=== PATIENT | male | born 1955 | race American Indian/Alaskan Native ===

== ENCOUNTER 2016-07-25 05:46 | Emergency (ER) | payer BC ==
[2016-07-25] MEDS ORDERED: XYLOCAINE 1% 20 mL ONE (06:15)
[2016-07-25] MEDS ORDERED: BOOSTRIX IM ONE (06:18)
--- NOTE | 2016-07-25 07:05 | Emergency Department Report ---
HPI - General Chief Complaint: Wound/Laceration Time Seen by Provider: 07/25/16 06:18 - HPI HPI: Chief complaint: Lacerated finger HPI: Patient is a 60-year-old male who cut his left index finger with scissors trying to cut plastic to separate his new shoes Mode of arrival: [private car] Source: [Patient] Began: One hour prior to admission Duration: Continuous Context: Patient has a history of diabetes and hypertension Quality: Sharp Severity: 7 out of 10 Improved with: Pressure improves bleeding Worsened with: Nothing Associated signs and symptoms: Bleeding no numbness or decreased movement ED Past Medical Hx - Past Medical History Previous Medical History?: Yes Hx Hypertension: Yes Hx Diabetes: Yes Additional medical history: GI bleed - Surgical History Past Surgical History?: Yes Additional Surgical History: surgery for GI bleed - Social History Smoking Status: Never Smoker Substance Use Type: None - Medications Home Medications: Home Medications Medication Instructions Recorded Confirmed Last Taken Type Diltiazem HCl 120 mg PO DAILY 09/23/14 12/02/15 09/21/14 History Fenofibrate 160 mg PO DAILY 09/23/14 12/02/15 09/21/14 History Glimepiride 2 mg PO DAILY 09/23/14 12/02/15 09/21/14 History Lisinopril/Hydrochlorothiazide 20 tab PO DAILY 09/23/14 12/02/15 09/21/14 History Simvastatin 10 mg PO QHS 09/23/14 12/02/15 09/21/14 History Percocet 7.5-325 mg 1 tab-cap PO TID #60 09/24/14 12/02/15 Unknown Rx ED Review of Systems ROS: Stated complaint: LAC 1ST FINGER LF HAND Other details as noted in HPI ROS Constitutional: No fever ENT: No uri symptoms Cardiovascular: No chest pain Respiratory: No sob or cough GI: No nausea vomiting Skin: Laceration Neuro: No focal weakness or numbness Agus/lymph: No edema Physical Exam - Physical Exam Vital Signs: Vital Signs 07/25/16 07/25/16 05:57 06:42 Temperature 98.1 F Pulse Rate 96 H Respiratory 18 16 Rate Blood Pressure 128/86 O2 Sat by Pulse 97 99 Oximetry Physical Exam: GENERAL: The patient is well-developed well-nourished []. [] HEENT: Normocephalic. Atraumatic. Extraocular motions are intact. Patient has moist mucous membranes. NECK: Normal inspection CHEST/LUNGS: There is no respiratory distress noted. HEART/CARDIOVASCULAR: capillary refill within normal limits ABDOMEN: There is no abdominal distention. SKIN: There is no rash. There is no edema. There is no diaphoresis. NEURO: The patient is awake, alert, and oriented. The patient is cooperative. The patient has normal speech. MUSCULOSKELETAL: 1-1/2 cm laceration at the DIP joint, ulnar aspect with brisk bleeding. Neurovascular intact. ED Course Vital Signs 07/25/16 07/25/16 05:57 06:42 Temperature 98.1 F Pulse Rate 96 H Respiratory 18 16 Rate Blood Pressure 128/86 O2 Sat by Pulse 97 99 Oximetry - Laceration /Wound Repair Left Finger Wound Location: upper extremity Wound Length (cm): 2 Wound's Depth, Shape: flap Wound Explored: clean Irrigated w/ Saline (ccs): 100 Betadine Prep?: No (Priscilla) Anesthesia: 1% Lidocaine Volume Anesthetic (ccs): 3 Wound Debrided: minimal Wound Repaired With: sutures Suture Size/Type: 4:0, proline Number of Sutures: 4 Layer Closure?: No Sterile Dressing Applied?: Yes Critical care attestation.: If time is entered above; I have spent that time in minutes in the direct care of this critically ill patient, excluding procedure time. ED Disposition Clinical Impression: Finger laceration Qualifiers: Encounter type: initial encounter Qualified Code(s): S61.219A - Laceration without foreign body of unspecified finger without damage to nail, initial encounter Disposition: DISCHARGED TO HOME OR SELFCARE Is pt being admited?: No Does the pt Need Aspirin: No Condition: Stable Instructions: Suture Care (ED) Additional Instructions: Suture removal 7 days. Return to the emergency department or follow-up with your primary care doctor for suture removal. Referrals: DONOVAN GE MD [Primary Care Provider] - 7-10 days Time of Disposition: 07:01
[2016-07-25 07:13] VITALS: BP 126/78
== END 2016-07-25 07:13 | disposition home or self-care (01) ==
LOC: ED 05:46
DX: S61.211A Laceration without foreign body of left index finger without damage to nail, initial encounter (principal); I10 Essential (primary) hypertension; E11.9 Type 2 diabetes mellitus without complications; W45.8XXA Other foreign body or object entering through skin, initial encounter; Y93.9 Activity, unspecified; Y92.9 Unspecified place or not applicable; Y99.9 Unspecified external cause status
CPT/HCPCS: 90471; 90715; 99282

== ENCOUNTER 2020-10-08 10:37 | Emergency (ER) | payer BC ==
[2020-10-08 11:12] VITALS: BP 139/90
--- NOTE | 2020-10-08 11:42 | Emergency Department Report ---
ED Neck Pain/Injury HPI - General Chief Complaint: Extremity Injury, Upper Stated Complaint: NECK/LT ARM PAIN Time Seen by Provider: 10/08/20 11:40 Mode of arrival: Ambulatory Limitations: No Limitations - History of Present Illness Initial Comments: This is a 65-year-old male nontoxic, well nourished in appearance, no acute signs of distress presents to the ED with c/o of acute on chronic right sided upper neck pain with radiation to right shoulder/arm x several years. Patient stated that he sees PCP and been taking Percocet with significant relief for many years. Patient stated that the past 2 days he was moving and developed this pain. Patient denies any trauma. Denies any bladder or bowel instability. Patient denies any urinary symptoms. Denies any fever, chills, nausea, vomiting, headache, stiff neck, chest pain or shortness of breath. Patient denies any numbness or tingling. Denies any allergies. Denies significant past medical history. MD Complaint: neck pain -: year(s) Place: home Radiation: right shoulder, right upper extremity Severity: mild Severity scale (0 -10): 3 Quality: aching Consistency: intermittent Improves With: rest supine Worsens With: movement of extremity, movement of neck Associated Symptoms: none. denies: headache, fever, numbness, tingling, weakness, vertigo, difficulty walking, swollen glands, difficulty swallowing, nausea, vomiting Treatments Prior to Arrival: none - Related Data Home Medications Medication Instructions Recorded Confirmed Last Taken Diltiazem HCl 120 mg PO DAILY 09/23/14 12/02/15 09/21/14 Fenofibrate 160 mg PO DAILY 09/23/14 12/02/15 09/21/14 Glimepiride 2 mg PO DAILY 09/23/14 12/02/15 09/21/14 Lisinopril/Hydrochlorothiazide 20 tab PO DAILY 09/23/14 12/02/15 09/21/14 Simvastatin 10 mg PO QHS 09/23/14 12/02/15 09/21/14 Previous Rx's Medication Instructions Recorded Last Taken Type Percocet 7.5-325 mg 1 tab-cap PO TID #60 09/24/14 Unknown Rx Cyclobenzaprine [Flexeril] 10 mg PO QHS PRN #10 tablet 10/08/20 Unknown Rx Naproxen 500 mg PO Q12HR PRN #12 tablet 10/08/20 Unknown Rx Allergies Allergy/AdvReac Type Severity Reaction Status Date / Time No Known Allergies Allergy Verified 10/08/20 11:09 ED Review of Systems ROS: Stated complaint: NECK/LT ARM PAIN Other details as noted in HPI Comment: All other systems reviewed and negative Constitutional: denies: chills, fever Eyes: denies: eye pain, eye discharge, vision change ENT: denies: ear pain, throat pain Respiratory: denies: cough, shortness of breath, wheezing Cardiovascular: denies: chest pain, palpitations Endocrine: no symptoms reported Gastrointestinal: denies: abdominal pain, nausea, diarrhea Genitourinary: denies: urgency, dysuria Musculoskeletal: denies: back pain, joint swelling, arthralgia Skin: denies: rash, lesions Neurological: denies: headache, weakness, paresthesias Psychiatric: denies: anxiety, depression Hematological/Lymphatic: denies: easy bleeding, easy bruising ED Past Medical Hx - Past Medical History Hx Hypertension: Yes Hx Diabetes: Yes Hx Liver Disease: No Hx Renal Disease: No Hx Sickle Cell Disease: No Hx Seizures: No Hx COPD: No Additional medical history: GI bleed - Surgical History Additional Surgical History: gi surgery - Social History Smoking Status: Never Smoker Substance Use Type: None - Medications Home Medications: Home Medications Medication Instructions Recorded Confirmed Last Taken Type Diltiazem HCl 120 mg PO DAILY 09/23/14 12/02/15 09/21/14 History Fenofibrate 160 mg PO DAILY 09/23/14 12/02/15 09/21/14 History Glimepiride 2 mg PO DAILY 09/23/14 12/02/15 09/21/14 History Lisinopril/Hydrochlorothiazide 20 tab PO DAILY 09/23/14 12/02/15 09/21/14 History Simvastatin 10 mg PO QHS 09/23/14 12/02/15 09/21/14 History Percocet 7.5-325 mg 1 tab-cap PO TID #60 09/24/14 12/02/15 Unknown Rx Cyclobenzaprine [Flexeril] 10 mg PO QHS PRN #10 tablet 10/08/20 Unknown Rx Naproxen 500 mg PO Q12HR PRN #12 tablet 10/08/20 Unknown Rx ED Physical Exam - General Limitations: No Limitations General appearance: alert, in no apparent distress - Head Head exam: Present: atraumatic, normocephalic - Eye Eye exam: Present: normal appearance, PERRL, EOMI - ENT ENT exam: Present: normal exam, normal orophraynx - Neck Neck exam: Present: normal inspection, full ROM. Absent: tenderness, meningismus, lymphadenopathy - Respiratory Respiratory exam: Absent: respiratory distress - Cardiovascular Cardiovascular Exam: Present: regular rate - Extremities Exam Extremities exam: Present: normal inspection, full ROM, normal capillary refill. Absent: tenderness, joint swelling - Back Exam Back exam: Present: normal inspection, full ROM, paraspinal tenderness (right cervical paraspinal). Absent: tenderness, CVA tenderness (R), CVA tenderness (L), muscle spasm, vertebral tenderness, rash noted - Neurological Exam Neurological exam: Present: alert, oriented X3, normal gait - Expanded Neurological Exam Expanded Patient oriented to: Present: person, place, time Cranial nerves: EOM's Intact: Normal, Facial Sensation: Normal Cerebellar function: Finger to Nose: Normal Upper motor neuron: Pronator Drift: Normal, Sensory Extinction: Normal Motor strength exam: RUE: 5, LUE: 5, RLE: 5, LLE: 5 Best Eye Response ([place]): (4) open spontaneously Best Motor Response (Brianna): (6) obeys commands Best Verbal Response (Brianna): (5) oriented [place] Total: 15 - Psychiatric Psychiatric exam: Present: normal affect, normal mood - Skin Skin exam: Present: warm, dry, intact, normal color. Absent: rash ED Course Vital Signs 10/08/20 11:11 Temperature 98.3 F Pulse Rate 92 H Respiratory 20 Rate Blood Pressure 139/90 O2 Sat by Pulse 97 Oximetry - Reevaluation(s) Reevaluation #1: 10/08/20 11:45 Patient is speaking in full sentences with no signs of distress noted. ED Medical Decision Making - Medical Decision Making This is a 65-year-old male that presents with cervical muscular paraspinal strain. Patient is stable was examined by me. There is no spinal tenderness. There is no cauda equina syndrome during examination. No bladder or bowel instability. Patient is discharged with muscle relaxant and Motrin. Patient was instructed not to operate any machinery while taking muscle relaxant as they cause her drowsiness. Patient was referred to Follow-up with a primary care doctor in 3-5 days or if symptoms worsen and continue return to emergency room as soon as possible. At time of discharge, the patient does not seem toxic or ill in appearance. No acute signs of distress noted. Patient agrees to discharge treatment plan of care. No further questions noted by the patient. This chart is dictated with using [employer] Dictation Program Critical care attestation.: If time is entered above; I have spent that time in minutes in the direct care of this critically ill patient, excluding procedure time. ED Disposition Clinical Impression: Cervical muscle strain Qualifiers: Encounter type: initial encounter Qualified Code(s): S16.1XXA - Strain of muscle, fascia and tendon at neck level, initial encounter Disposition: TO HOME OR SELFCARE Is pt being admited?: No Does the pt Need Aspirin: No Condition: Stable Instructions: RICE Therapy for Routine Care of Injuries, [id number], Cyclobenzaprine tablets Additional Instructions: Follow-up with your primary care doctor in 3-5 days or if symptoms worsen such as bladder or bowel stability, chest pain, short of breath, numbness or tingling sensation in extremities, headache, dizziness, visual changes, nausea vomiting, or abdominal pain, return back to emergency room as was possible. Take naproxen and Flexeril as prescribed. Do not operate heavy machinery while taking Flexeril due to sedation Prescriptions: Cyclobenzaprine [Flexeril] 10 mg PO QHS PRN #10 tablet PRN Reason: Muscle Spasm Naproxen 500 mg PO Q12HR PRN #12 tablet PRN Reason: Pain , Severe (7-10) Referrals: PRIMARY MD LUMA [Referring] - 3-5 Days AGUSTÍN FABIAN MD [Staff Physician] - 3-5 Days Time of Disposition: 11:47
== END 2020-10-08 12:18 | disposition home or self-care (01) ==
LOC: ED 10:37
DX: S16.1XXA Strain of muscle, fascia and tendon at neck level, initial encounter (principal); I10 Essential (primary) hypertension; E11.9 Type 2 diabetes mellitus without complications; Z98.890 Other specified postprocedural states; Z79.899 Other long term (current) drug therapy; X58.XXXA Exposure to other specified factors, initial encounter; Y93.89 Activity, other specified; Y92.89 Other specified places as the place of occurrence of the external cause; Y99.8 Other external cause status
CPT/HCPCS: 99281

== ENCOUNTER 2020-10-22 10:13 | Outpatient (CLI) | payer BC ==
[2020-10-22 11:01] LABS: Blood Urea Nitrogen 15 mg/dL (9-20)
--- NOTE | 2020-10-22 12:47 | Cat Scan Report ---
CT HEAD WITHOUT AND WITH INTRAVENOUS CONTRAST INDICATION / CLINICAL INFORMATION: Cerebrovascular accident. TECHNIQUE: All CT scans at this location are performed using CT dose reduction for ALARA by means of automated e xposure control. COMPARISON: None available. FINDINGS: HEMORRHAGE: No evidence of intracranial hemorrhage or extra-axial fluid collection. EXTRA-AXIAL SPACES: Cortical sulci and sylvian fissures are at the upper limit of normal given the pa mary's age of 65 years. Basilar cisterns have an unremarkable appearance. VENTRICULAR SYSTEM: The third and lateral ventricles are within normal limits in size and configurati on. CEREBRAL PARENCHYMA: Extensive periventricular and deep white matter lucency is observed. This is pro bably secondary to advanced microvascular ischemic change. There is no indication of recent infarctio n. No areas of encephalomalacia are identified. MIDLINE SHIFT OR HERNIATION: There is no mass effect. CEREBELLUM / BRAINSTEM: Brainstem has an unremarkable appearance. Age related cerebellar atrophy is n oted. MIDLINE STRUCTURES:Pituitary gland has an unremarkable appearance. No abnormalities are seen in the p ineal region. INTRACRANIAL VESSELS:Calcified atherosclerotic plaque is present along the course of the cavernous se gments of both internal carotid arteries. Similar findings are seen at the distal vertebral arteries. ORBITS: visualized portions of the orbits have an unremarkable appearance. SOFT TISSUES of HEAD: No significant abnormality. CALVARIUM: Evaluation of bone windows reveals no abnormalities. PARANASAL SINUSES / MASTOID AIR CELLS: Paranasal sinuses are free from inflammatory mucosal disease. Mastoid air cells are normally pneumatized. IMPRESSION: 1. Advanced microvascular ischemic change in the white matter both cerebral hemispheres. 2. Otherwise negative head CT without and with intravenous contrast. Signer Name: Rick Monzon MD Signed: 10/22/2020 12:43 PM Workstation Name: [id number]
== END 2020-10-22 10:14 | disposition home or self-care (01) ==
LOC: CT 10:13
PROVIDERS: ATTEND Internal Medicine
DX: I67.82 Cerebral ischemia (principal)
CPT/HCPCS: 36415; 70470; 82565; 84520; Q9967

== ENCOUNTER 2020-10-28 13:53 | Emergency (ER) | payer BC ==
[2020-10-28 14:02] VITALS: BP 111/69
--- NOTE | 2020-10-28 15:53 | Event Note ---
ED Screening Note Date of service: 10/28/20 Time: 15:50 ED Screening Note: 65-year-old -[place] male with a history of diabetes hypertension hyperlipidemia that states he is on blood thinners presents to the emergency room for right arm right leg numbness and headache x6 days. Patient states his primary care doctor is Dr. Gama and he spoke with him and he ordered a CAT scan on 10/22/2020 which was complete. Patient states that he has not been seen to discuss his CT scan as Dr. Gama had an emergency and had to leave the office. Patient reports that his right foot will sometimes get cold thinks is his circulation. Patient is unaware of his medications. This initial assessment/diagnostic orders/clinical plan/treatment(s) is/are subject to change based on patients health status, clinical progression and re- assessment by fellow clinical providers in the ED. Further treatment and workup at subsequent clinical providers discretion. Patient/guardian urged not to elope from the ED as their condition may be serious if not clinically assessed and managed. Initial orders include:
[2020-10-28 16:11] LABS: Basophils % (Auto) 0.7 % (0.0-1.8); Eosinophils # (Auto) 0.1 K/mm3 (0.0-0.4); Eosinophils % (Auto) 2.5 % (0.0-4.3); Hematocrit 46.3 % (35.5-45.6); Hemoglobin 15.5 gm/dl (11.8-15.2); Lymphocytes # (Auto) 2.6 K/mm3 (1.2-5.4); Lymphocytes % (Auto) 48.2 % (13.4-35.0); Mean Corpuscular HGB Conc 34 % (32-34); Mean Corpuscular Volume 85 fl (84-94); Monocytes # (Auto) 0.4 K/mm3 (0.0-0.8); Monocytes % (Auto) 8.1 % (0.0-7.3); Platelet Count 302 K/mm3 (140-440); Red Blood Count 5.44 M/mm3 (3.65-5.03); Red Cell Distribution Width 13.8 % (13.2-15.2)
[2020-10-28 16:33] LABS: Alanine Aminotransferase 16 units/L (7-56); Albumin 4.3 g/dL (3.9-5); BUN/Creatinine Ratio 17; Blood Urea Nitrogen 15 mg/dL (9-20); Hemolysis Index 32
--- NOTE | 2020-10-28 23:44 | Emergency Department Report ---
ED General Adult HPI - General Chief complaint: Extremity Injury, Upper Stated complaint: R ARM PAIN Time Seen by Provider: 10/28/20 23:26 Source: patient Mode of arrival: Ambulatory Limitations: No Limitations - History of Present Illness Initial comments: 65-year-old male patient with history of atherosclerotic disease presents to the emergency department with complaints of nontraumatic right upper extremity and right lower extremity pain for several years. Patient states he tried to contact his primary care provider, who reportedly had to leave town on emergency, and he was advised to come to the emergency department. Pain is no worse today than it has been in the past. Patient states he is not currently on any pain medication. There has been no recent fall or injury. Denies headache, chest pain, shortness of breath, paresthesias, numbness, back pain, skin color changes. Denies all other complaints at this time. - Related Data Home Medications Medication Instructions Recorded Confirmed Last Taken Diltiazem HCl 120 mg PO DAILY 09/23/14 12/02/15 09/21/14 Fenofibrate 160 mg PO DAILY 09/23/14 12/02/15 09/21/14 Glimepiride 2 mg PO DAILY 09/23/14 12/02/15 09/21/14 Lisinopril/Hydrochlorothiazide 20 tab PO DAILY 09/23/14 12/02/15 09/21/14 Simvastatin 10 mg PO QHS 09/23/14 12/02/15 09/21/14 Previous Rx's Medication Instructions Recorded Last Taken Type Percocet 7.5-325 mg 1 tab-cap PO TID #60 09/24/14 Unknown Rx Cyclobenzaprine [Flexeril] 10 mg PO QHS PRN #10 tablet 10/08/20 Unknown Rx Naproxen 500 mg PO Q12HR PRN #12 tablet 10/08/20 Unknown Rx Acetaminophen [Acetaminophen TAB] 1,000 mg PO Q4HR #30 tablet 10/28/20 Unknown Rx Lidocaine [Lidoderm] 1 each TP BID #20 adh..patch 10/28/20 Unknown Rx Allergies Allergy/AdvReac Type Severity Reaction Status Date / Time No Known Allergies Allergy Verified 10/08/20 11:09 ED Review of Systems ROS: Stated complaint: R ARM PAIN Other details as noted in HPI Other: GENERAL: Negative for fever, chills, weight change, anorexia, fatigue. ENT: Negative for ear pain, difficulty hearing, sore throat, nasal congestion, epistaxis. CARDIOVASCULAR: Negative for chest pain, palpitations, lower extremity swelling. PULMONARY: Negative for cough, dyspnea, wheezing, orthopnea, cyanosis. GASTROINTESTINAL: Negative for abdominal pain, nausea, vomiting, diarrhea, constipation. MUSCULOSKELETAL: Positive for joint pain. NEUROLOGICAL: Negative for headache, seizure, syncope, paresthesias, weakness. INTEGUMENTARY: Negative for erythema, rash, diaphoresis, laceration, ecchymosis. HEMATOLOGICAL: Negative for hemoptysis, hematemesis, hematochezia, hematuria. PSYCHIATRIC: Negative for hallucinations, suicidal ideation, homicidal ideation, anxiety, depression. ED Past Medical Hx - Past Medical History Previous Medical History?: Yes Hx Hypertension: Yes Hx Diabetes: Yes Hx Liver Disease: No Hx Renal Disease: No Hx Sickle Cell Disease: No Hx Seizures: No Hx COPD: No Additional medical history: GI bleed - Surgical History Past Surgical History?: Yes Additional Surgical History: gi surgery - Social History Smoking Status: Never Smoker Substance Use Type: None - Medications Home Medications: Home Medications Medication Instructions Recorded Confirmed Last Taken Type Diltiazem HCl 120 mg PO DAILY 09/23/14 12/02/15 09/21/14 History Fenofibrate 160 mg PO DAILY 09/23/14 12/02/15 09/21/14 History Glimepiride 2 mg PO DAILY 09/23/14 12/02/15 09/21/14 History Lisinopril/Hydrochlorothiazide 20 tab PO DAILY 09/23/14 12/02/15 09/21/14 History Simvastatin 10 mg PO QHS 09/23/14 12/02/15 09/21/14 History Percocet 7.5-325 mg 1 tab-cap PO TID #60 09/24/14 12/02/15 Unknown Rx Cyclobenzaprine [Flexeril] 10 mg PO QHS PRN #10 tablet 10/08/20 Unknown Rx Naproxen 500 mg PO Q12HR PRN #12 tablet 10/08/20 Unknown Rx Acetaminophen [Acetaminophen TAB] 1,000 mg PO Q4HR #30 tablet 10/28/20 Unknown Rx Lidocaine [Lidoderm] 1 each TP BID #20 adh..patch 10/28/20 Unknown Rx ED Physical Exam - General Limitations: No Limitations - Other Other exam information: General: Awake and alert. No acute distress. Head: Atraumatic, normocephalic. Eyes: EOMI. Pupils are equal and round. Normal sclera and conjunctiva. ENT: Oral mucosa is moist. Normal pharyngeal exam. Neck: Supple. No lymphadenopathy. Pulmonary: No respiratory distress. Clear to auscultation bilaterally. Cardiac: Regular rate and rhythm. Pulses are palpable and equal bilaterally. No lower extremity cyanosis or edema. Skin: Warm and dry. No rashes. Abdomen: Soft, non-tender, non-protuberant. No guarding, rigidity, or rebound. Bowel sounds are normal. No organomegaly or masses noted. Back: Normal alignment. No CVA tenderness. Extremities: Symmetrical. Full range of motion intact. Patient reports poorly localized right upper and right lower extremity pain without reproducible tenderness. Ambulatory without assistance. Distal neurovascular motor/sensory function intact. Neurological: Alert and oriented, appropriately interactive, no focal deficits. Psych: Cooperative. Appropriate mood and affect. Speech is evenly metered. Thoughts are logically construed. ED Course Vital Signs 10/28/20 10/28/20 14:00 23:54 Temperature 97.5 F L Pulse Rate 88 81 Respiratory 18 17 Rate Blood Pressure 111/69 [Right] O2 Sat by Pulse 98 99 Oximetry ED Medical Decision Making - Lab Data Result diagrams: 10/28/20 15:57 10/28/20 15:57 - Medical Decision Making Differential diagnosis including but not limited to: sprain, strain, fracture, contusion, dislocation, peripheral vascular disease, electrolyte abnormality, cervical radiculopathy Patient presents emergency department with complaints of nontraumatic right upper and right lower extremity pain for several years. Review of past medical records indicates patient has been evaluated in this emergency department for the same complaint on previous occasions. He was also evaluated by his primary care provider last week, at which time he underwent CT scan of the head, which showed no acute changes. Patient attempted to contact his primary care provider to receive the results of his CT results, but was told that his doctor was out of town. He is here inquiring about the results of his outpatient imaging study. These results were retrieved and discussed with the patient. Pain is no different today and he has not taken any medication for pain. He is afebrile, hemodynamically stable, neurovascularly intact, ambulatory without assistance. Labs ordered during medical screening exam by previous provider unremarkable. No clinical indication for further diagnostic work-up on an emergent basis at this time. Patient will be discharged home with appropriate analgesics and instructed to call his primary care provider's office tomorrow to arrange for close outpatient follow-up for definitive management of his ongoing pain. Review of past medical records demonstrates patient has a remote history of GI bleed. He thinks he may be on an anticoagulant, but cannot recall the name of the medication and is not sure why he was started on this medication; he states he has no prior history of venous thromboembolism. As a precaution, NSAIDs/steroids will be avoided. Patient expressed understanding and is agreeable to plan of care. Strict return precautions provided. Repeat exam is unremarkable and benign. History, exam, diagnostic testing, and current condition do not suggest worrisome pathology to warrant further testing, continued ED treatment, admission, or surgical evaluation at this point. Given the low probability of a significant medical illness, it would be more likely to result in harm than benefit to perform further testing at this stage. Discussed findings, presumptive diagnosis, need for follow-up and specific signs/symptoms that should prompt immediate return to the emergency department. Instructions were explained in detail to the patient in addition to giving written discharge information. Patient expressed understanding and was given the opportunity to ask questions, all of which were satisfactorily answered prior to discharge home. Critical care attestation.: If time is entered above; I have spent that time in minutes in the direct care of this critically ill patient, excluding procedure time. ED Disposition Clinical Impression: Chronic pain Qualifiers: Chronic pain type: other chronic pain Qualified Code(s): G89.29 - Other chronic pain Disposition: DC-01 TO HOME OR SELFCARE Is pt being admited?: No Does the pt Need Aspirin: No Condition: Stable Instructions: Chronic Pain, Adult Additional Instructions: Take Acetaminophen every 4 hours as needed for pain. Use Lidoderm patches as needed for pain. Continue all other medications as previously prescribed. Follow-up with Dr. Mclain, primary care provider, this week. Call tomorrow to schedule an appointment. Return to the emergency department immediately for new or worsening symptoms. Specifically, return to the emergency department immediately for headache, seizu re, mental status changes, numbness, weakness, or any other concerns. Prescriptions: Acetaminophen [Acetaminophen TAB] 1,000 mg PO Q4HR #30 tablet Lidocaine [Lidoderm] 1 each TP BID #20 adh..patch Referrals: TABATHA MCLAIN MD [Staff Physician] - 3-5 Days Time of Disposition: 23:48
== END 2020-10-28 23:54 | disposition home or self-care (01) ==
LOC: ED 13:53
DX: M79.604 Pain in right leg (principal); M79.641 Pain in right hand; G89.29 Other chronic pain; I10 Essential (primary) hypertension; Z79.899 Other long term (current) drug therapy
CPT/HCPCS: 36415; 80053; 85025; 99283

== ENCOUNTER 2020-11-13 09:51 | Outpatient (CLI) | payer BC ==
--- NOTE | 2020-11-13 12:03 | Magnetic Resonance Report ---
MRI BRAIN WITHOUT AND WITH CONTRAST INDICATION / CLINICAL INFORMATION: Sensory disorder, headaches, right-sided weakness. TECHNIQUE: Multiplanar, multisequence MR images of the brain were obtained. COMPARISON: Head CT on 10/22/2020 FINDINGS: BRAIN / INTRACRANIAL CONTENTS: There are multiple tiny acute infarcts in the cerebral white matter in cluding the bilateral frontal almonte radiata and right parietal periventricular white matter. There i s no associated hemorrhage or adverse mass effect. There is similar advanced chronic small vessel isc hemic change in the cerebral white matter and moderate global brain atrophy. There is a small focus o f chronic microhemorrhage in the right frontal cerebral white matter and in the right thalamus. CRANIOCERVICAL JUNCTION: No significant abnormality. VASCULAR FLOW-VOIDS: No significant abnormality. ORBITS: No significant abnormality of visualized orbits. SINUSES / MASTOIDS: No significant abnormality of visualized sinuses and mastoid air cells. ADDITIONAL FINDINGS: None. IMPRESSION: 1. Multiple tiny acute lacunar infarcts in the cerebral white matter without acute hemorrhage or adve rse mass effect. 2. Advanced chronic small vessel ischemic change in the cerebral white matter. Signer Name: Jesus Vasques MD Signed: 11/13/2020 11:59 AM Workstation Name: [id number]
[2020-11-13 12:57] LABS: Hematocrit 23.8 % (35.5-45.6); Hemoglobin 8.1 gm/dl (11.8-15.2); Mean Corpuscular HGB Conc 34 % (32-34); Mean Corpuscular Volume 85 fl (84-94); Platelet Count 298 K/mm3 (140-440)
[2020-11-13 13:25] LABS: Alanine Aminotransferase 18 units/L (7-56); Albumin 4.1 g/dL (3.9-5); BUN/Creatinine Ratio 16; Blood Urea Nitrogen 14 mg/dL (9-20); Calcium 9.4 mg/dL (8.4-10.2); Hemolysis Index 3
== END 2020-11-13 09:52 | disposition home or self-care (01) ==
LOC: MRI 09:51
PROVIDERS: ATTEND Internal Medicine
DX: I63.9 Cerebral infarction, unspecified (principal); R20.8 Other disturbances of skin sensation; I67.82 Cerebral ischemia; G31.89 Other specified degenerative diseases of nervous system; I61.8 Other nontraumatic intracerebral hemorrhage
CPT/HCPCS: 36415; 70553; 80053; 85027; A9575

== ENCOUNTER 2021-03-03 09:07 | Outpatient (CLI) | payer BC ==
--- NOTE | 2021-03-03 13:43 | Magnetic Resonance Report ---
MR lumbar spine wo con INDICATION / CLINICAL INFORMATION: LUMBAR PAIN--RT LEG PAIN. TECHNIQUE: Multisequence, multiplanar images of the lumbar spine were obtained. COMPARISON: None available. FINDINGS: NOMENCLATURE: For the purposes of this report, L5-S1 is defined as axial image 37 of series 6. ALIGNMENT: Normal alignment. VERTEBRAE:No aggressive osseous marrow signal. Vertebral body heights are preserved. VISUALIZED SPINAL CORD: The conus appears within normal limits. YDRWM-IS-QITYA ANALYSIS: L1-2: No significant spinal canal stenosis. No significant foraminal narrowing. L2-3: No significant spinal canal stenosis. No significant foraminal narrowing. L3-4: No significant spinal canal stenosis. No significant foraminal narrowing. L4-5: Small disc bulge. Moderate facet arthropathy. Mild spinal canal stenosis. No significant spinal canal stenosis. Mild foraminal narrowing. L5-S1: Small disc bulge. Advanced arthropathy. Mild spinal canal stenosis. Mild foraminal narrowing. PARASPINAL SOFT TISSUES: No significant abnormality. ADDITIONAL FINDINGS: None. IMPRESSION: L4-5 and L5-S1 spondylosis with moderate facet arthropathy mild spinal canal stenosis, and mild priyank inal narrowing. Definitions used for the purposes of this report: Lumbar canal stenosis (Keshia et al. Br J Radiol. 2012;86(9645):[id number]): No stenosis: No attenuation of the CSF spaces Mild stenosis: Anterior CSF space mildly obliterated Moderate stenosis: Anterior CSF space is moderately obliterated; cauda equina partially aggregated Severe stenosis: Marked compression of the dural sac; cauda equina cannot be visually and a ppear as a bundle Lumbar lateral recess stenosis (Erick et al. World J Radiol. 2017 November 13;9(5):223-229): No stenosis: Nerve root is bathed in fluid Mild stenosis: Narrowing of the lateral recess without root deviation Moderate stenosis: Narrowing of the recess with nerve root deviation Severe stenosis: Compression of the nerve root Lumbar neural foraminal stenosis (Jigar et al. AJR Am J Roentgenol. 2010 Sep;194(4):1095-8): No stenosis: No attenuation of the fat in the foramen Mild stenosis: Loss of the fat in the foramen on two sides Moderate stenosis: Loss of the fat in the foramen all four sides Severe stenosis: Loss of the fat in the foramen all four sides and compression of the nerve root Signer Name: Sharath Douglas MD Signed: 03/03/2021 1:39 PM Workstation Name: [id number]
--- NOTE | 2021-03-03 13:53 | Magnetic Resonance Report ---
MRI CERVICAL SPINE WITHOUT CONTRAST INDICATION / CLINICAL INFORMATION: CERVICAL PAIN. TECHNIQUE: Multisequence, multiplanar images of the cervical spine were obtained. COMPARISON: None available. FINDINGS: CRANIOCERVICAL JUNCTION:No significant abnormality. Trace fluid accumulation in the left lateral atla ntoaxial joint ALIGNMENT: No significant abnormality. VERTEBRAE:Normal marrow signal and vertebral body height for age. VISUALIZED SPINAL CORD: No significant abnormality. IGMIY-UF-DCCIY ANALYSIS: C2-3: Midline disc bulge; neuroforamina are normal C3-4: Midline disc bulge; neuroforamina are normal C4-5: Midline disc protrusion extending more towards the left side; moderate left foraminal stenoses C5-6: Disc height loss; disc herniation in the right subarticular zone displacing the dural sac and s vaibhav cord; moderate right foraminal stenoses C6-7: Right foraminal disc herniation extending across the midline towards the left neural foramen; m oderate right foraminal stenoses C7-T1: Bulging disc; neuroforamina are normal PARASPINAL SOFT TISSUES: No significant abnormality. ADDITIONAL FINDINGS: Mucosal thickening in the sphenoid sinus; chronic changes in the rivas due to chr onic small vessel disease IMPRESSION: C5-C6: Disc herniation on the right subarticular zone; moderate right foraminal stenoses C6-C7: Right foraminal zone disc herniation extending across the midline towards the left neuroforame n; moderate right foraminal stenoses Signer Name: Sidra Miramontes MD Signed: 03/03/2021 1:48 PM Workstation Name: [id number]
== END 2021-03-03 09:08 | disposition home or self-care (01) ==
LOC: MRI 09:07
PROVIDERS: ATTEND Psychiatry & Neurology Neurology
DX: M47.817 Spondylosis without myelopathy or radiculopathy, lumbosacral region (principal); M50.221 Other cervical disc displacement at C4-C5 level; M48.07 Spinal stenosis, lumbosacral region; M51.27 Other intervertebral disc displacement, lumbosacral region; M48.02 Spinal stenosis, cervical region
CPT/HCPCS: 72141; 72148

== ENCOUNTER 2021-07-27 09:21 | Outpatient (CLI) | payer BC ==
--- NOTE | 2021-07-27 11:00 | XRay Report ---
Right shoulder 3 views INDICATION: Pain FINDINGS: There is glenohumeral and AC degenerative change. No acute fracture or dislocation is ident ified. Signer Name: Linus Bennett MD Signed: 07/27/2021 10:56 AM Workstation Name: [id number]
== END 2021-07-27 09:22 | disposition home or self-care (01) ==
LOC: XRAY 09:21
PROVIDERS: ATTEND Neurological Surgery
DX: M19.011 Primary osteoarthritis, right shoulder (principal)

== ENCOUNTER 2021-08-04 09:49 | Outpatient (CLI) | payer BC ==
--- NOTE | 2021-08-04 12:42 | Magnetic Resonance Report ---
MRI BRAIN WITHOUT CONTRAST INDICATION / CLINICAL INFORMATION: R51.9 HEADACHE,UNSPECIFIED, NECK PAIN, TINGLING RT HAND. TECHNIQUE: Multiplanar, multisequence MR images of the brain were obtained. COMPARISON: MRI brain 11/13/2020 and 07/11/2008 FINDINGS: BRAIN / INTRACRANIAL CONTENTS: Moderate parenchymal volume loss is demonstrated. Large of the cortica l sulci and ventricular system is noted. This is somewhat more pronounced than expected for patient's age of 65 years. Extensive periventricular, deep white matter and subcortical white matter hyperinte nsities are observed throughout both cerebral hemispheres. This is a manifestation of advanced microv ascular ischemic change. Findings are stable since 11/13/2020 but have progressed since study dated . Additionally noted are multiple remote small deep infarctions in a bilateral gangliocapsular distribution as well as in the white matter of the centrum semiovale of both cerebral hemispheres. R emote small deep lesions are identified in the posterior aspect of the thalami bilaterally. Similar f indings were present on previous study. Diffusion weighted scans are unremarkable for 2 small foci of restricted diffusion in the region of the postcentral gyrus on the left. Recent infarctions in this location are suspected. There is no mass effect. No evidence of intracranial hemorrhage or extra-axia l fluid collection is seen. The brainstem and cerebellum have an unremarkable appearance. CRANIOCERVICAL JUNCTION: No abnormalities are identified at the craniocervical junction. VASCULAR FLOW-VOIDS: Normal flow-voids are present within the major intracranial vessels. ORBITS: The orbits have an unremarkable appearance. SINUSES / MASTOIDS: Inflammatory changes are present in the frontal sinuses, anterior and mid ethmoid air cells and at the base of both maxillary sinuses. These inflammatory changes have progressed sinc e 11/13/2020. IMPRESSION: 1. 2 small foci of restricted diffusion are observed in the postcentral gyrus of the left parietal lo be near the vertex. These reflect presence of a recent small infarctions. 2. Advanced microvascular ischemic change. 3. Multifocal remote small deep infarctions. Signer Name: Rick Monzon MD Signed: 08/04/2021 12:37 PM Workstation Name: [id number]
== END 2021-08-04 09:50 | disposition home or self-care (01) ==
LOC: MRI 09:49
PROVIDERS: ATTEND Psychiatry & Neurology Neurology
DX: I67.82 Cerebral ischemia (principal); I63.9 Cerebral infarction, unspecified; R51.9 Headache, unspecified
CPT/HCPCS: 70551

== ENCOUNTER 2022-01-29 22:14 | Emergency (ER) | payer BC, MEDICARE ==
[2022-01-29] MEDS ORDERED: ACETAMINOPHEN 500 MG TAB PO ONE (23:00)
[2022-01-29 23:35] LABS: Basophils # (Auto) 0.1 K/mm3 (0.0-0.1); Eosinophils # (Auto) 0.2 K/mm3 (0.0-0.4); Eosinophils % (Auto) 2.7 % (0.0-4.3); Hematocrit 40.7 % (35.5-45.6); Hemoglobin 13.6 gm/dl (11.8-15.2); Lymphocytes # (Auto) 1.2 K/mm3 (1.2-5.4); Lymphocytes % (Auto) 22.1 % (13.4-35.0); Mean Corpuscular HGB Conc 34 % (32-34); Mean Corpuscular Volume 82 fl (84-94); Monocytes # (Auto) 0.4 K/mm3 (0.0-0.8); Monocytes % (Auto) 7.6 % (0.0-7.3); Platelet Count 239 K/mm3 (140-440); Red Blood Count 4.95 M/mm3 (3.65-5.03); Red Cell Distribution Width 14.3 % (13.2-15.2)
[2022-01-29] MEDS ORDERED: hydrALAZINE 20 MG/1 ML INJ IV ONE (23:41)
--- NOTE | 2022-01-29 23:43 | Emergency Department Report ---
ED Headache HPI - General Chief Complaint: Dizziness Stated Complaint: ALUC/HYPERTENSION Time Seen by Provider: 01/29/22 22:53 - History of Present Illness Initial Comments: Patient is a 66-year-old male presenting to ED with complaint of headache that began a little over an hour ago. He describes it as a throbbing sensation in the posterior right portion of his head, gradual in onset. He also complains of feeling lightheaded. Also complains of spasms in his right arm. He denies any chest pain or palpitations. He did not take anything for his symptoms. Allergies/Adverse Reactions: Allergies No Known Allergies Allergy (Verified 10/08/20 11:09) Home Medications: Ambulatory Orders Diltiazem HCl 120 mg PO DAILY 09/23/14 Fenofibrate 160 mg PO DAILY 09/23/14 Glimepiride 2 mg PO DAILY 09/23/14 Lisinopril/Hydrochlorothiazide 20 tab PO DAILY 09/23/14 Simvastatin 10 mg PO QHS 09/23/14 Percocet 7.5-325 mg 1 tab-cap PO TID #60 09/24/14 Cyclobenzaprine [Flexeril] 10 mg PO QHS PRN #10 tablet 10/08/20 Naproxen 500 mg PO Q12HR PRN #12 tablet 10/08/20 Acetaminophen [Acetaminophen TAB] 1,000 mg PO Q4HR #30 tablet 10/28/20 Lidocaine [Lidoderm] 1 each TP BID #20 adh..patch 10/28/20 ED Review of Systems ROS: Stated complaint: ALUC/HYPERTENSION Other details as noted in HPI Constitutional: denies: chills, fever Respiratory: denies: cough, shortness of breath, wheezing Cardiovascular: denies: chest pain, palpitations Gastrointestinal: denies: abdominal pain, nausea, diarrhea Genitourinary: denies: urgency, dysuria Musculoskeletal: denies: back pain, joint swelling, arthralgia Skin: denies: rash, lesions Neurological: headache Psychiatric: denies: anxiety, depression ED Past Medical Hx - Past Medical History Previous Medical History?: Yes Hx Hypertension: Yes Hx CVA: Yes Hx Diabetes: Yes Hx Liver Disease: No Hx Renal Disease: No Hx Sickle Cell Disease: No Hx Seizures: No Hx COPD: No Additional medical history: GI bleed - Surgical History Past Surgical History?: Yes Additional Surgical History: gi surgery - Social History Smoking Status: Never Smoker Substance Use Type: None - Medications Home Medications: Home Medications Medication Instructions Recorded Confirmed Last Taken Type Diltiazem HCl 120 mg PO DAILY 09/23/14 12/02/15 09/21/14 History Fenofibrate 160 mg PO DAILY 09/23/14 12/02/15 09/21/14 History Glimepiride 2 mg PO DAILY 09/23/14 12/02/15 09/21/14 History Lisinopril/Hydrochlorothiazide 20 tab PO DAILY 09/23/14 12/02/15 09/21/14 History Simvastatin 10 mg PO QHS 09/23/14 12/02/15 09/21/14 History Percocet 7.5-325 mg 1 tab-cap PO TID #60 09/24/14 12/02/15 Unknown Rx Cyclobenzaprine [Flexeril] 10 mg PO QHS PRN #10 tablet 10/08/20 Unknown Rx Naproxen 500 mg PO Q12HR PRN #12 tablet 10/08/20 Unknown Rx Acetaminophen [Acetaminophen TAB] 1,000 mg PO Q4HR #30 tablet 10/28/20 Unknown Rx Lidocaine [Lidoderm] 1 each TP BID #20 adh..patch 10/28/20 Unknown Rx ED Physical Exam - General Limitations: No Limitations General appearance: alert, in no apparent distress - Head Head exam: Present: atraumatic, normocephalic - Eye Eye exam: Present: normal appearance, PERRL, EOMI - Respiratory Respiratory exam: Present: normal lung sounds bilaterally. Absent: respiratory distress - Cardiovascular Cardiovascular Exam: Present: regular rate, normal rhythm, normal heart sounds - GI/Abdominal GI/Abdominal exam: Present: soft. Absent: distended, tenderness - Neurological Exam Neurological exam: Present: alert, oriented X3, CN II-XII intact - Psychiatric Psychiatric exam: Present: normal affect, normal mood - Skin Skin exam: Present: warm, dry, intact, normal color ED Course Vital Signs 01/29/22 01/29/22 01/29/22 22:15 23:15 23:16 Temperature 98.3 F Pulse Rate 106 H 94 H Respiratory 18 18 Rate Blood Pressure 176/104 154/99 O2 Sat by Pulse 96 96 96 Oximetry 01/29/22 01/29/22 01/29/22 23:19 23:30 23:46 Temperature Pulse Rate 94 H 97 H Respiratory 18 25 H 28 H Rate Blood Pressure 150/107 156/102 O2 Sat by Pulse 97 97 Oximetry 01/29/22 01/30/22 01/30/22 23:49 00:00 00:01 Temperature Pulse Rate 95 H 94 H 95 H Respiratory 28 H 26 H 32 H Rate Blood Pressure 150/107 156/101 156/102 O2 Sat by Pulse 97 97 97 Oximetry 01/30/22 01/30/22 00:14 00:15 Temperature Pulse Rate 97 H 103 H Respiratory 22 Rate Blood Pressure 156/101 170/88 O2 Sat by Pulse 96 Oximetry ED Medical Decision Making - Lab Data Result diagrams: 01/29/22 23:26 01/29/22 23:26 - Medical Decision Making Patient presenting to ED with complaint of headache. Labs are grossly unremarkable except for glucose of 175. Patient is diabetic. He was given oral Tylenol and clonidine for his hypertension. On reassessment patient states his symptoms are resolved. He is stable for discharge home with return precautions. Critical care attestation.: If time is entered above; I have spent that time in minutes in the direct care of this critically ill patient, excluding procedure time. ED Disposition Clinical Impression: Headache, Hypertension Disposition: 01 HOME / SELF CARE / HOMELESS Is pt being admited?: No Condition: Stable Instructions: Hypertension (ED), Hypertension, Adult, General Headache Without Cause Additional Instructions: Please follow-up with your regular doctor as needed. You may return if your symptoms worsen. Time of Disposition: 02:22
[2022-01-29 23:54] LABS: BUN/Creatinine Ratio 19; Blood Urea Nitrogen 13 mg/dL (9-20); Calcium 9.4 mg/dL (8.4-10.2); Hemolysis Index 6
[2022-01-30] MEDS ORDERED: cloNIDine 0.1 MG TAB PO ONE (00:10)
[2022-01-30 03:38] VITALS: BP 165/86
--- NOTE | 2022-01-30 14:44 | Electrocardiograph Report ---
[facility] Test Date: 2022-01-29 Test Time: 23:39:43 Pat Name: KRISTEN TRAN Department: Room: Gender: M Brainer: : 1955 Requested By: JESSICA NOVOA Order Number: [id number] Reading MD: Td Castaneda Measurements Intervals Holcomb Rate: 95 P: 60 [place]: 203 QRS: 51 QRSD: 79 T: 58 QT: 340 QTc: 428 Interpretive Statements Sinus rhythm Probable left ventricular hypertrophy ST elevation, consider anterior injury No previous ECG available for comparison Electronically Signed On 01-30-2022 14:44:41 EDT by Td Castaneda
== END 2022-01-31 03:20 | disposition home or self-care (01) ==
LOC: ED 22:14
DX: R51.9 Headache, unspecified (principal); I10 Essential (primary) hypertension; E11.9 Type 2 diabetes mellitus without complications
CPT/HCPCS: 36415; 80048; 84484; 85025; 93005; 99284